=== PATIENT | female | born 1950 | race Asian ===

== ENCOUNTER 2018-07-14 08:46 | Inpatient (IN) | payer OTHER, MEDICAID ==
[2018-07-06 13:18] LABS: CALCIUM 9.4 mg/dL (8.4-11.0); CREATININE 0.8 mg/dL (0.55-1.30); POTASSIUM 4.1 mmol/L (3.5-5.1)
[2018-07-06 13:29] LABS: BILIRUBIN,URINE NEGATIVE (NEGATIVE); CLARITY/URINE CLEAR (CLEAR); COLOR,URINE YELLOW (YELLOW); GLUCOSE,URINE NEGATIVE (NEGATIVE); KETONES,URINE NEGATIVE (NEGATIVE); LEUKOCYTE ESTERASE ,URINE NEGATIVE (NEGATIVE); NITRITE, URINE NEGATIVE (NEGATIVE); PH,URINE 5.5 (5.0-8.0); PROTEIN URINE NEGATIVE (NEGATIVE); UROBILINOGEN,URINE 0.2 (0.2-1.0)
[2018-07-06 13:31] LABS: EOSINOPHILS # (AUTO) 0.1 K/uL (0.0-0.4); LYMPHOCYTES # (AUTO) 2.4 K/uL (1.0-5.5); MEAN CORPUSCULAR VOLUME 90 fL (79.0-98.0); MONOCYTES # (AUTO) 0.4 K/uL (0.0-1.0); WHITE BLOOD COUNT (AUTO) 7.4 K/uL (4.8-10.8)
[2018-07-06 13:34] LABS: BASOPHILS % (AUTO) 0.3 % (0.0-2.0); EOSINOPHILS % (AUTO) 1.2 % (0.0-4.0); HEMATOCRIT 36.2 % (36-48); HEMOGLOBIN 11.7 g/dL (12.0-16.0); LYMPHOCYTES % (AUTO) 33.1 % (20.5-51.5); MEAN CORPUSCULAR HEMOGLOBIN 29 pg (27-31); MEAN CORPUSCULAR HGB CONC 32 % (32-36); MONOCYTES % (AUTO) 5.3 % (1.7-9.3); NEUTROPHILS # (AUTO) 4.4 K/uL (1.8-7.7); NEUTROPHILS % (AUTO) 60.1 % (40.0-70.0); PLATELET COUNT (AUTO) 279 K/uL (130-430); RED BLOOD CELL COUNT(AUTO) 4.03 MIL/uL (4.2-6.2); RED CELL DISTRIBUTION WIDTH 16.4 % (9.0-15.0)
[2018-07-06 13:35] LABS: BLOOD, URINE TRACE (NEGATIVE)
[2018-07-06 13:57] LABS: BACTERIA,URINE FEW /HPF (None Seen); MUCUS,URINE None Seen /LPF (None Seen); WBC,URINE 0-3 /HPF (0-3); YEAST,URINE None Seen /HPF (None Seen)
[~2018-07-14] VITALS: Ht 152.4 cm; Wt 72.6 kg
[2018-07-14] MEDS ORDERED: VANCOMYCIN HCL 1 GM/NS PREMIX 250 ML IV ONE (09:00)
[2018-07-14] MEDS ORDERED: CEFAZOLIN 2 GM IVPB PREMIX 50 ML IV ONE (09:00)
[2018-07-14] MEDS ORDERED: GLIP10TA11 PO (10:26)
[2018-07-14] MEDS ORDERED: DULA0.75 SQ (10:26)
[2018-07-14] MEDS ORDERED: MELO15TA13 PO (10:26)
[2018-07-14] MEDS ORDERED: METF1000 PO (10:26)
[2018-07-14] MEDS ORDERED: POLYMYXIN 500,000/BACIT.10,000 UNITS in NS IRR 1 L IR ONE (11:36)
[2018-07-14] MEDS ORDERED: TRANEXAMIC ACID 1,000 MG/10 ML VIAL IV ONE (12:11)
[2018-07-14] MEDS ORDERED: MORPHINE SULFATE 10MG/10ML PF AMP EP ONE (12:11)
[2018-07-14] MEDS ORDERED: BUPIVACAINE /DEX PF 0.75% SPINAL 2 ML AMP INJ ONE (12:11)
[2018-07-14] MEDS ORDERED: ROPIVACAINE 0.2% (NAROPIN) PF SOLUTION 100 ML BOTTLE EP ONE (12:11)
[2018-07-14] MEDS ORDERED: MIDAZOLAM HCL 5 MG/5 ML VIAL IVP ONE (12:11)
[2018-07-14] MEDS ORDERED: ROPIVACAINE 0.2% 550 ML INJ SCH (13:16)
[2018-07-14] MEDS ORDERED: ONDANSETRON HCL 4 MG/2 ML VIAL IVP PRN ×3 (13:30)
[2018-07-14] MEDS ORDERED: KETOROLAC TROMETHAMINE 60 MG/2 ML VIAL IM PRN (13:30)
[2018-07-14] MEDS ORDERED: DIPHENHYDRAMINE INJ 50 MG/ML VIAL IVP PRN ×2 (13:30)
[2018-07-14] MEDS ORDERED: NALBUPHINE HCL 10 MG/ML AMP IVP PRN ×2 (13:30)
[2018-07-14] MEDS ORDERED: KETOROLAC TROMETHAMINE 30 MG VIAL IVP PRN (13:30)
[2018-07-14] MEDS ORDERED: MORPHINE SULFATE 10MG/10ML PF AMP SP SCH (13:30)
[2018-07-14] MEDS ORDERED: OXYCODONE/ACETAMINOPHEN *10*mg/325 mg TABLET PO PRN (13:30)
[2018-07-14] MEDS ORDERED: NALOXONE HCL 0.4 MG/ML AMP (NARCAN) IVP PRN ×2 (13:30)
[2018-07-14] MEDS ORDERED: fentaNYL CITRATE/PF 100 MCG/2 ML AMP IVP PRN ×2 (13:30)
[2018-07-14 15:15] VITALS: BP_SYST 109
[2018-07-14 15:20] VITALS: BP_SYST 109
[2018-07-14] MEDS: D5/0.45 NS 1,000 ML IV SCH (16:23)
[2018-07-14] MEDS ORDERED: HYDROcodone/ACETAMIN 7.5-325 MG TAB PO PRN (16:30)
[2018-07-14] MEDS ORDERED: TRANEXAMIC ACID 1,000 MG in NS 50 ML IV ONE (17:15)
[2018-07-14] MEDS ORDERED: DEXTROSE 50% JECT 50 ML DISP.SYRIN IVP PRN (18:00)
[2018-07-14] MEDS: ONDANSETRON HCL 4 MG/2 ML VIAL IVP PRN (18:07)
[2018-07-14] MEDS ORDERED: METOCLOPRAMIDE HCL 10 MG/2 ML VIAL IVP PRN (18:15)
[2018-07-14] MEDS ORDERED: PANTOPRAZOLE SODIUM 40 MG/VIAL (PROTONIX) IVP ONE (18:30)
[2018-07-14 19:35] VITALS: BP_SYST 116
[2018-07-14] MEDS: SENNOSIDES 8.6 MG TABLET PO SCH (20:16)
[2018-07-14 23:47] VITALS: BP_SYST 119
[2018-07-15] MEDS: D5/0.45 NS 1,000 ML IV SCH ×3 (00:28→13:56)
[2018-07-15] MEDS: DIPHENHYDRAMINE HCL 25 MG CAPSULE PO PRN ×3 (01:37→09:29)
[2018-07-15] MEDS: HYDROcodone/ACETAMIN 10-325 MG TAB PO PRN (05:17)
[2018-07-15] MEDS: INSULIN REGULAR, HUMAN 100 UNITS/ML, 10 ML VIAL (novoLIN R) SUBCUT PRN ×4 (05:57→21:01)
[2018-07-15 06:26] LABS: BASOPHILS % (AUTO) 0.1 % (0.0-2.0); EOSINOPHILS % (AUTO) 0.5 % (0.0-4.0); HEMATOCRIT 26.4 % (36-48); HEMOGLOBIN 8.7 g/dL (12.0-16.0); LYMPHOCYTES # (AUTO) 1.6 K/uL (1.0-5.5); LYMPHOCYTES % (AUTO) 18.4 % (20.5-51.5); MEAN CORPUSCULAR HEMOGLOBIN 30 pg (27-31); MEAN CORPUSCULAR HGB CONC 33 % (32-36); MEAN CORPUSCULAR VOLUME 90 fL (79.0-98.0); MONOCYTES # (AUTO) 0.7 K/uL (0.0-1.0); MONOCYTES % (AUTO) 7.8 % (1.7-9.3); NEUTROPHILS # (AUTO) 6.6 K/uL (1.8-7.7); NEUTROPHILS % (AUTO) 73.2 % (40.0-70.0); PLATELET COUNT (AUTO) 295 K/uL (130-430); RED BLOOD CELL COUNT(AUTO) 2.94 MIL/uL (4.2-6.2); RED CELL DISTRIBUTION WIDTH 15.8 % (9.0-15.0); WHITE BLOOD COUNT (AUTO) 8.9 K/uL (4.8-10.8)
[2018-07-15 06:35] LABS: CALCIUM 8.4 mg/dL (8.4-11.0); CREATININE 0.91 mg/dL (0.55-1.30); POTASSIUM 4.2 mmol/L (3.5-5.1)
[2018-07-15 06:42] LABS: TOTAL IRON BIND. CAPACITY 336 ug/dL (250-450)
[2018-07-15] MEDS ORDERED: NALOXONE HCL 0.4 MG/ML AMP (NARCAN) IVP PRN (08:15)
[2018-07-15] MEDS: MORPHINE PCA 50 mg/50 mL NS IV PRN (08:42)
[2018-07-15] MEDS ORDERED: MULTIVITAMINS TAB 1 TABLET PO SCH (09:00)
[2018-07-15] MEDS: ASCORBIC ACID 500 MG TABLET PO SCH ×2 (09:28→21:02)
[2018-07-15] MEDS: FERROUS SULFATE 140 MG TABLET.ER PO SCH (09:28)
[2018-07-15] MEDS: PANTOPRAZOLE SODIUM 40 MG/VIAL (PROTONIX) IVP SCH (09:28)
[2018-07-15] MEDS: MULTIVITAMINS TAB 1 TABLET PO SCH (09:28)
[2018-07-15] MEDS: RIVAROXABAN 10 MG TABLET PO SCH (09:33)
[2018-07-15 12:02] VITALS: BP_SYST 139
[2018-07-15] MEDS ORDERED: ACETAMINOPHEN 325 MG TABLET PO PRN (12:15)
[2018-07-15] MEDS: ONDANSETRON HCL 4 MG/2 ML VIAL IVP PRN (13:52)
[2018-07-15 16:02] VITALS: BP_SYST 118
[2018-07-15] MEDS ORDERED: ALBUTEROL SULFATE 0.083% 2.5 MG/3 ML VIAL.NEB INH PRN (17:30)
[2018-07-15] MEDS: D5NS 1,000 ML IV SCH (17:43)
[2018-07-15 20:00] VITALS: BP_SYST 129
[2018-07-15] MEDS: SENNOSIDES 8.6 MG TABLET PO SCH (21:02)
[2018-07-15] MEDS: ALBUTEROL SULFATE 0.083% 2.5 MG/3 ML VIAL.NEB INH SCH (23:11)
[2018-07-16 00:02] VITALS: BP_SYST 132
[2018-07-16] MEDS: HYDROcodone/ACETAMIN 10-325 MG TAB PO PRN ×2 (00:39→05:13)
[2018-07-16] MEDS: INSULIN REGULAR, HUMAN 100 UNITS/ML, 10 ML VIAL (novoLIN R) SUBCUT PRN ×3 (06:27→16:49)
[2018-07-16] MEDS: D5NS 1,000 ML IV SCH ×3 (06:31→21:40)
[2018-07-16] MEDS: ALBUTEROL SULFATE 0.083% 2.5 MG/3 ML VIAL.NEB INH SCH ×4 (07:00→22:43)
[2018-07-16 07:10] LABS: BASOPHILS % (AUTO) 0.3 % (0.0-2.0); EOSINOPHILS # (AUTO) 0.1 K/uL (0.0-0.4); EOSINOPHILS % (AUTO) 0.8 % (0.0-4.0); HEMATOCRIT 25.4 % (36-48); HEMOGLOBIN 8.3 g/dL (12.0-16.0); LYMPHOCYTES # (AUTO) 1.5 K/uL (1.0-5.5); LYMPHOCYTES % (AUTO) 15.4 % (20.5-51.5); MEAN CORPUSCULAR HEMOGLOBIN 29 pg (27-31); MEAN CORPUSCULAR HGB CONC 33 % (32-36); MEAN CORPUSCULAR VOLUME 89 fL (79.0-98.0); MONOCYTES # (AUTO) 0.7 K/uL (0.0-1.0); MONOCYTES % (AUTO) 7.4 % (1.7-9.3); NEUTROPHILS # (AUTO) 7.3 K/uL (1.8-7.7); NEUTROPHILS % (AUTO) 76.1 % (40.0-70.0); PLATELET COUNT (AUTO) 260 K/uL (130-430); RED BLOOD CELL COUNT(AUTO) 2.85 MIL/uL (4.2-6.2); RED CELL DISTRIBUTION WIDTH 15.9 % (9.0-15.0); WHITE BLOOD COUNT (AUTO) 9.6 K/uL (4.8-10.8)
[2018-07-16 07:12] LABS: CALCIUM 8.7 mg/dL (8.4-11.0); CREATININE 0.92 mg/dL (0.55-1.30)
[2018-07-16] MEDS: MORPHINE PCA 50 mg/50 mL NS IV PRN ×2 (07:16→21:33)
[2018-07-16 08:00] VITALS: BP_SYST 105
[2018-07-16] MEDS: DIPHENHYDRAMINE HCL 25 MG CAPSULE PO PRN ×2 (09:40→20:54)
[2018-07-16] MEDS: MULTIVITAMINS TAB 1 TABLET PO SCH ×2 (09:41→20:54)
[2018-07-16] MEDS: FERROUS SULFATE 140 MG TABLET.ER PO SCH (09:41)
[2018-07-16] MEDS: RIVAROXABAN 10 MG TABLET PO SCH (09:41)
[2018-07-16] MEDS: PANTOPRAZOLE SODIUM 40 MG/VIAL (PROTONIX) IVP SCH (09:41)
[2018-07-16] MEDS: ASCORBIC ACID 500 MG TABLET PO SCH ×2 (09:41→20:54)
[2018-07-16 11:58] VITALS: BP_SYST 129
[2018-07-16] MEDS ORDERED: CHOLECALCIFEROL (VITAMIN D3) 2,000 UNIT TABLET PO ONE (15:30)
[2018-07-16] MEDS ORDERED: CYANOCOBALAMIN 1000 mCg TABLET PO ONE (15:30)
[2018-07-16 16:05] VITALS: BP_SYST 134
[2018-07-16] MEDS: SOD FERRIC GLUC COMPLEX/SUC 125 MG in NS 100 ML IV SCH (16:48)
[2018-07-16] MEDS: SENNOSIDES 8.6 MG TABLET PO SCH (20:57)
[2018-07-17 00:22] VITALS: BP_SYST 149
[2018-07-17 06:13] LABS: BASOPHILS % (AUTO) 0.4 % (0.0-2.0); EOSINOPHILS # (AUTO) 0.1 K/uL (0.0-0.4); EOSINOPHILS % (AUTO) 0.7 % (0.0-4.0); HEMOGLOBIN 7.4 g/dL (12.0-16.0); LYMPHOCYTES # (AUTO) 1.3 K/uL (1.0-5.5); LYMPHOCYTES % (AUTO) 15.3 % (20.5-51.5); MEAN CORPUSCULAR HEMOGLOBIN 29 pg (27-31); MEAN CORPUSCULAR HGB CONC 32 % (32-36); MEAN CORPUSCULAR VOLUME 90 fL (79.0-98.0); MONOCYTES # (AUTO) 0.6 K/uL (0.0-1.0); MONOCYTES % (AUTO) 6.8 % (1.7-9.3); NEUTROPHILS # (AUTO) 6.7 K/uL (1.8-7.7); NEUTROPHILS % (AUTO) 76.8 % (40.0-70.0); PLATELET COUNT (AUTO) 244 K/uL (130-430); RED BLOOD CELL COUNT(AUTO) 2.54 MIL/uL (4.2-6.2); RED CELL DISTRIBUTION WIDTH 15.9 % (9.0-15.0); WHITE BLOOD COUNT (AUTO) 8.7 K/uL (4.8-10.8)
[2018-07-17] MEDS: INSULIN REGULAR, HUMAN 100 UNITS/ML, 10 ML VIAL (novoLIN R) SUBCUT PRN ×4 (06:21→21:00)
[2018-07-17 06:40] LABS: CALCIUM 8.8 mg/dL (8.4-11.0); CREATININE 0.87 mg/dL (0.55-1.30)
[2018-07-17] MEDS: ALBUTEROL SULFATE 0.083% 2.5 MG/3 ML VIAL.NEB INH SCH ×3 (07:00→23:00)
[2018-07-17 08:00] VITALS: BP_SYST 126
[2018-07-17] MEDS: CHOLECALCIFEROL (VITAMIN D3) 2,000 UNIT TABLET PO SCH (08:41)
[2018-07-17] MEDS: ASCORBIC ACID 500 MG TABLET PO SCH ×2 (08:41→20:44)
[2018-07-17] MEDS: PANTOPRAZOLE SODIUM 40 MG/VIAL (PROTONIX) IVP SCH (08:41)
[2018-07-17] MEDS: MULTIVITAMINS TAB 1 TABLET PO SCH ×2 (08:41→20:44)
[2018-07-17] MEDS: CYANOCOBALAMIN 1000 mCg TABLET PO SCH (08:41)
[2018-07-17] MEDS: FERROUS SULFATE 140 MG TABLET.ER PO SCH (08:41)
[2018-07-17] MEDS: MORPHINE PCA 50 mg/50 mL NS IV PRN (09:40)
[2018-07-17] MEDS: RIVAROXABAN 10 MG TABLET PO SCH (09:53)
[2018-07-17] MEDS: NACL 0.9% 1,000 ML IV SCH (11:29)
[2018-07-17 12:10] VITALS: BP_SYST 140
[2018-07-17] MEDS ORDERED: BISACODYL 5 MG TABLET.DR (DULCOLAX) PO ONE (14:30)
[2018-07-17] MEDS ORDERED: DOCUSATE SODIUM 250 MG CAPSULE PO ONE (14:30)
[2018-07-17] MEDS ORDERED: BISACODYL 5 MG TABLET.DR (DULCOLAX) PO PRN (14:30)
[2018-07-17] MEDS ORDERED: MILK OF MAGNESIA 30 ML UDC PO ONE (14:30)
[2018-07-17] MEDS ORDERED: BISACODYL 10 MG/SUPPOSITORY RC PRN (14:30)
[2018-07-17 16:25] VITALS: BP_SYST 119
[2018-07-17] MEDS: SOD FERRIC GLUC COMPLEX/SUC 125 MG in NS 100 ML IV SCH (16:39)
[2018-07-17] MEDS: HYDROcodone/ACETAMIN 10-325 MG TAB PO PRN ×2 (16:49→20:45)
[2018-07-17 20:00] VITALS: BP_SYST 132
[2018-07-17] MEDS: SENNOSIDES 8.6 MG TABLET PO SCH (20:45)
[2018-07-17] MEDS: DOCUSATE SODIUM 250 MG CAPSULE PO SCH (20:53)
[2018-07-18] MEDS: HYDROcodone/ACETAMIN 10-325 MG TAB PO PRN ×6 (02:42→22:26)
[2018-07-18 04:41] VITALS: BP_SYST 104
[2018-07-18 06:46] LABS: BASOPHILS % (AUTO) 0.4 % (0.0-2.0); EOSINOPHILS # (AUTO) 0.1 K/uL (0.0-0.4); EOSINOPHILS % (AUTO) 2.4 % (0.0-4.0); HEMATOCRIT 23.2 % (36-48); HEMOGLOBIN 7.7 g/dL (12.0-16.0); LYMPHOCYTES # (AUTO) 0.9 K/uL (1.0-5.5); LYMPHOCYTES % (AUTO) 16.1 % (20.5-51.5); MEAN CORPUSCULAR HEMOGLOBIN 30 pg (27-31); MEAN CORPUSCULAR HGB CONC 33 % (32-36); MEAN CORPUSCULAR VOLUME 90 fL (79.0-98.0); MONOCYTES # (AUTO) 0.5 K/uL (0.0-1.0); NEUTROPHILS # (AUTO) 4.3 K/uL (1.8-7.7); NEUTROPHILS % (AUTO) 73.1 % (40.0-70.0); PLATELET COUNT (AUTO) 231 K/uL (130-430); RED BLOOD CELL COUNT(AUTO) 2.57 MIL/uL (4.2-6.2); RED CELL DISTRIBUTION WIDTH 15.4 % (9.0-15.0); WHITE BLOOD COUNT (AUTO) 5.8 K/uL (4.8-10.8)
[2018-07-18] MEDS: NACL 0.9% 1,000 ML IV SCH (06:48)
[2018-07-18 06:56] LABS: CALCIUM 8.6 mg/dL (8.4-11.0); CREATININE 0.75 mg/dL (0.55-1.30); POTASSIUM 3.8 mmol/L (3.5-5.1)
[2018-07-18] MEDS: INSULIN REGULAR, HUMAN 100 UNITS/ML, 10 ML VIAL (novoLIN R) SUBCUT PRN ×3 (06:59→22:33)
[2018-07-18] MEDS: ALBUTEROL SULFATE 0.083% 2.5 MG/3 ML VIAL.NEB INH SCH ×3 (07:23→23:00)
[2018-07-18 08:00] VITALS: BP_SYST 111
[2018-07-18] MEDS: CHOLECALCIFEROL (VITAMIN D3) 2,000 UNIT TABLET PO SCH (09:38)
[2018-07-18] MEDS: MULTIVITAMINS TAB 1 TABLET PO SCH ×2 (09:38→22:25)
[2018-07-18] MEDS: ASCORBIC ACID 500 MG TABLET PO SCH ×2 (09:38→22:25)
[2018-07-18] MEDS: DOCUSATE SODIUM 250 MG CAPSULE PO SCH ×2 (09:39→22:26)
[2018-07-18] MEDS: RIVAROXABAN 10 MG TABLET PO SCH (09:39)
[2018-07-18] MEDS: CYANOCOBALAMIN 1000 mCg TABLET PO SCH (09:39)
[2018-07-18] MEDS: PANTOPRAZOLE SODIUM 40 MG/VIAL (PROTONIX) IVP SCH (09:40)
[2018-07-18] MEDS: FERROUS SULFATE 140 MG TABLET.ER PO SCH (09:40)
[2018-07-18 09:44] LABS: RETICULOCYTE COUNT 5.5 % (0.5-1.5)
[2018-07-18] MEDS ORDERED: GABAPENTIN 100 MG CAPSULE PO ONE (12:00)
[2018-07-18 12:45] VITALS: BP_SYST 142
[2018-07-18 16:45] VITALS: BP_SYST 137
[2018-07-18] MEDS: SOD FERRIC GLUC COMPLEX/SUC 125 MG in NS 100 ML IV SCH (17:08)
[2018-07-18 20:00] VITALS: BP_SYST 110
[2018-07-18] MEDS ORDERED: GABAPENTIN 300 MG CAPSULE PO SCH (21:00)
[2018-07-18] MEDS: SENNOSIDES 8.6 MG TABLET PO SCH (21:00)
[2018-07-18] MEDS: GABAPENTIN 300 MG CAPSULE PO SCH (22:25)
[2018-07-19 00:16] VITALS: BP_SYST 132
[2018-07-19] MEDS: HYDROcodone/ACETAMIN 10-325 MG TAB PO PRN ×4 (03:05→15:47)
[2018-07-19] MEDS: NACL 0.9% 1,000 ML IV SCH (06:32)
[2018-07-19 07:01] LABS: BASOPHILS % (AUTO) 0.2 % (0.0-2.0); EOSINOPHILS # (AUTO) 0.2 K/uL (0.0-0.4); EOSINOPHILS % (AUTO) 2.9 % (0.0-4.0); HEMOGLOBIN 7.7 g/dL (12.0-16.0); LYMPHOCYTES % (AUTO) 17.7 % (20.5-51.5); MEAN CORPUSCULAR HEMOGLOBIN 30 pg (27-31); MEAN CORPUSCULAR HGB CONC 33 % (32-36); MEAN CORPUSCULAR VOLUME 89 fL (79.0-98.0); MONOCYTES # (AUTO) 0.4 K/uL (0.0-1.0); MONOCYTES % (AUTO) 7.9 % (1.7-9.3); NEUTROPHILS # (AUTO) 4.1 K/uL (1.8-7.7); NEUTROPHILS % (AUTO) 71.3 % (40.0-70.0); PLATELET COUNT (AUTO) 247 K/uL (130-430); RED BLOOD CELL COUNT(AUTO) 2.58 MIL/uL (4.2-6.2); RED CELL DISTRIBUTION WIDTH 15.4 % (9.0-15.0); WHITE BLOOD COUNT (AUTO) 5.7 K/uL (4.8-10.8)
[2018-07-19 08:00] VITALS: BP_SYST 150
[2018-07-19 08:09] LABS: CALCIUM 8.5 mg/dL (8.4-11.0); CREATININE 0.68 mg/dL (0.55-1.30); POTASSIUM 3.1 mmol/L (3.5-5.1)
[2018-07-19] MEDS: ALBUTEROL SULFATE 0.083% 2.5 MG/3 ML VIAL.NEB INH SCH ×2 (08:41→15:00)
[2018-07-19] MEDS: ASCORBIC ACID 500 MG TABLET PO SCH (08:53)
[2018-07-19] MEDS: PANTOPRAZOLE SODIUM 40 MG/VIAL (PROTONIX) IVP SCH (08:53)
[2018-07-19] MEDS: CYANOCOBALAMIN 1000 mCg TABLET PO SCH (08:53)
[2018-07-19] MEDS: MULTIVITAMINS TAB 1 TABLET PO SCH (08:53)
[2018-07-19] MEDS: DOCUSATE SODIUM 250 MG CAPSULE PO SCH (08:53)
[2018-07-19] MEDS: CHOLECALCIFEROL (VITAMIN D3) 2,000 UNIT TABLET PO SCH (08:53)
[2018-07-19] MEDS: GABAPENTIN 300 MG CAPSULE PO SCH (08:53)
[2018-07-19] MEDS: FERROUS SULFATE 140 MG TABLET.ER PO SCH (08:54)
[2018-07-19] MEDS: RIVAROXABAN 10 MG TABLET PO SCH (10:38)
[2018-07-19] MEDS: INSULIN REGULAR, HUMAN 100 UNITS/ML, 10 ML VIAL (novoLIN R) SUBCUT PRN (11:32)
[2018-07-19] MEDS ORDERED: HYDR-551 PO (11:55)
[2018-07-19] MEDS ORDERED: SENN17.24 PO (11:57)
[2018-07-19] MEDS ORDERED: NEU300 PO (11:58)
[2018-07-19] MEDS ORDERED: RIVA10TA PO (11:59)
[2018-07-19 12:30] VITALS: BP_SYST 127
[2018-07-19] MEDS ORDERED: POTASSIUM CHLORIDE 20 MEQ TAB.PRT.SR PO ONE (13:45)
[2018-07-19] MEDS ORDERED: SOD FERRIC GLUC COMPLEX/SUC 125 MG in NS 100 ML IV SCH (15:00)
[2018-07-19 15:36] VITALS: BP_SYST 127
[2018-07-19 16:35] VITALS: BP_SYST 139
[2018-07-19] MEDS ORDERED: FAMOTIDINE 20 MG TABLET PO SCH (21:00)
[2018-07-19] MEDS ORDERED: POTASSIUM CHLORIDE 20 MEQ TAB.PRT.SR PO SCH (21:00)
== END 2018-07-19 17:04 | DRG 470 ==
LOC: SMU 08:48 → EDSTATUS 12:40 → SMU 15:13 → STU 15:16 → SMU 07-19 07:58
PROVIDERS: ADMIT Orthopaedic Surgery; ATTEND Orthopaedic Surgery
PROC: 0SRD0J9 Replacement of Left Knee Joint with Synthetic Substitute, Cemented, Open Approach (ICD-10-PCS; principal; 2018-07-14 11:30)
PROC: 30233N1 Transfusion of Nonautologous Red Blood Cells into Peripheral Vein, Percutaneous Approach (ICD-10-PCS; 2018-07-17)
DX: M17.12 Unilateral primary osteoarthritis, left knee (principal); E87.1 Hypo-osmolality and hyponatremia; D62 Acute posthemorrhagic anemia; K59.00 Constipation, unspecified; I10 Essential (primary) hypertension; M85.862 Other specified disorders of bone density and structure, left lower leg; F41.9 Anxiety disorder, unspecified; E53.8 Deficiency of other specified B group vitamins; E66.9 Obesity, unspecified; E11.9 Type 2 diabetes mellitus without complications; Z68.31 Body mass index [BMI] 31.0-31.9, adult; E61.1 Iron deficiency; Z82.49 Family history of ischemic heart disease and other diseases of the circulatory system; Z83.3 Family history of diabetes mellitus; Z83.6 Family history of other diseases of the respiratory system
CPT/HCPCS: 36415; 71045; 71046-TC; 73560-TC; 80048; 81000-TC; 82306; 82607; 82962; 83540-TC; 83550-TC; 85025; 85044-TC; 86886; 86890; 86900; 86901; 86920; 87081; 88305; 88311; 94010; 94640; 94760; 97110-GP; 97116-GP; 97163; 97530-GP; C1713; C1776; C9113; J0690; J1200; J1815; J2250; J2270; J2274; J2405; J2795; J2916; J3370; J3490; J7030; J7040; J7042; J7613; Q0163

== ENCOUNTER 2019-01-17 13:02 | Emergency (ER) | payer OTHER, MEDICAID ==
[~2019-01-17] VITALS: Ht 149.9 cm; Wt 70.3 kg
[~2019-01-17 13:02] MED LIST: DULA0.75 SQ; GLIP10TA11 PO; HYDR-4273 PO; MELO15TA13 PO; METF1000 PO; NEU300 PO; RIVA10TA PO; SENN17.24 PO
[2019-01-17 13:20] VITALS: BP_SYST 129
[2019-01-17 14:48] LABS: BILIRUBIN,URINE NEGATIVE (NEGATIVE); BLOOD, URINE 3+ (NEGATIVE); CLARITY/URINE HAZY (CLEAR); COLOR,URINE YELLOW (YELLOW); GLUCOSE,URINE NEGATIVE (NEGATIVE); KETONES,URINE 1+ (NEGATIVE); LEUKOCYTE ESTERASE ,URINE TRACE (NEGATIVE); NITRITE, URINE NEGATIVE (NEGATIVE); PH,URINE 5.5 (5.0-8.0); PROTEIN URINE 1+ (NEGATIVE); UROBILINOGEN,URINE 0.2 (0.2-1.0)
[2019-01-17 14:54] LABS: HEMATOCRIT 39.5 % (36-48); HEMOGLOBIN 13.3 g/dL (12.0-16.0); MEAN CORPUSCULAR HEMOGLOBIN 31 pg (27-31); MEAN CORPUSCULAR VOLUME 93 fL (79.0-98.0); RED BLOOD CELL COUNT(AUTO) 4.27 MIL/uL (4.2-6.2); WHITE BLOOD COUNT (AUTO) 9.6 K/uL (4.8-10.8)
[2019-01-17 14:55] LABS: BASOPHILS # (AUTO) 0.1 K/uL (0.0-0.2); BASOPHILS % (AUTO) 0.7 % (0.0-2.0); EOSINOPHILS # (AUTO) 0.1 K/uL (0.0-0.4); LYMPHOCYTES # (AUTO) 2.8 K/uL (1.0-5.5); LYMPHOCYTES % (AUTO) 28.9 % (20.5-51.5); MEAN CORPUSCULAR HGB CONC 34 % (32-36); MONOCYTES # (AUTO) 0.5 K/uL (0.0-1.0); MONOCYTES % (AUTO) 5.1 % (1.7-9.3); NEUTROPHILS # (AUTO) 6.2 K/uL (1.8-7.7); NEUTROPHILS % (AUTO) 64.3 % (40.0-70.0); PLATELET COUNT (AUTO) 268 K/uL (130-430); RED CELL DISTRIBUTION WIDTH 13.6 % (9.0-15.0)
[2019-01-17 14:56] LABS: CALCIUM 9.5 mg/dL (8.4-11.0); CREATININE 0.86 mg/dL (0.55-1.30); POTASSIUM 3.8 mmol/L (3.5-5.1)
[2019-01-17 14:59] LABS: RBC,URINE 80-100 /HPF (0-3)
[2019-01-17 15:00] LABS: BACTERIA,URINE FEW /HPF (None Seen); CALCIUM OXALATE CRYSTALS,UR 0-10 /HPF (None Seen); MUCUS,URINE 1+ /LPF (None Seen)
[2019-01-17 15:03] LABS: ALBUMIN 3.4 g/dL (3.4-4.8); TOTAL BILIRUBIN 0.5 mg/dL (0.0-1.0)
[2019-01-17] MEDS ORDERED: cefTRIAXone 1 GM IVPB PREMIX 50 ML IV ONE (16:15)
[2019-01-17] MEDS ORDERED: SODIUM CHLORIDE 500 MG TABLET PO ONE (16:15)
[2019-01-17 17:12] LABS: CALCIUM 9.6 mg/dL (8.4-11.0); CREATININE 0.78 mg/dL (0.55-1.30)
[2019-01-17] MEDS ORDERED: PANTOPRAZOLE SODIUM 40 MG TAB PO ONE (18:00)
[2019-01-17 18:14] VITALS: BP_SYST 129
== END 2019-01-17 18:11 | disposition home or self-care (01) ==
LOC: SED 13:02
DX: K29.70 Gastritis, unspecified, without bleeding (principal); N39.0 Urinary tract infection, site not specified; E87.1 Hypo-osmolality and hyponatremia; E11.9 Type 2 diabetes mellitus without complications; Z79.899 Other long term (current) drug therapy
CPT/HCPCS: 36415; 80048; 80053; 81000; 83690; 85025; 87086; 96365; 99283; J0696

== ENCOUNTER 2019-01-23 19:18 | Emergency (ER) | payer OTHER, MEDICAID ==
[~2019-01-23] VITALS: Ht 149.9 cm; Wt 70.3 kg
[2019-01-23 19:50] VITALS: BP_SYST 143
[2019-01-23] MEDS ORDERED: MORPHINE 4 MG/ML INJ. SYRINGE IVP ONE ×2 (20:30→23:30)
[2019-01-23] MEDS ORDERED: NACL 0.9% 1,000 ML IV ONE ×2 (20:30→22:45)
[2019-01-23] MEDS ORDERED: ONDANSETRON HCL 4 MG/2 ML VIAL IVP ONE (20:30)
[2019-01-23] MEDS ORDERED: ALPRAZolam 0.25 MG TABLET PO ONE (20:30)
[2019-01-23 21:29] LABS: BASOPHILS % (AUTO) 0.3 % (0.0-2.0); EOSINOPHILS # (AUTO) 0.1 K/uL (0.0-0.4); EOSINOPHILS % (AUTO) 0.5 % (0.0-4.0); HEMOGLOBIN 12.1 g/dL (12.0-16.0); LYMPHOCYTES # (AUTO) 1.3 K/uL (1.0-5.5); LYMPHOCYTES % (AUTO) 10.1 % (20.5-51.5); MEAN CORPUSCULAR HEMOGLOBIN 31 pg (27-31); MEAN CORPUSCULAR HGB CONC 33 % (32-36); MEAN CORPUSCULAR VOLUME 94 fL (79.0-98.0); MONOCYTES # (AUTO) 0.4 K/uL (0.0-1.0); MONOCYTES % (AUTO) 3.3 % (1.7-9.3); NEUTROPHILS # (AUTO) 10.7 K/uL (1.8-7.7); NEUTROPHILS % (AUTO) 85.8 % (40.0-70.0); PLATELET COUNT (AUTO) 197 K/uL (130-430); RED BLOOD CELL COUNT(AUTO) 3.93 MIL/uL (4.2-6.2); RED CELL DISTRIBUTION WIDTH 13.9 % (9.0-15.0); WHITE BLOOD COUNT (AUTO) 12.5 K/uL (4.8-10.8)
[2019-01-23 21:36] LABS: CALCIUM 9.2 mg/dL (8.4-11.0); CREATININE 1.21 mg/dL (0.55-1.30); POTASSIUM 3.9 mmol/L (3.5-5.1)
[2019-01-23 21:41] LABS: ALBUMIN 3.1 g/dL (3.4-4.8); TOTAL BILIRUBIN 0.4 mg/dL (0.0-1.0)
[2019-01-23] MEDS ORDERED: cefTRIAXone 1 GM IVPB PREMIX 50 ML IV ONE (22:45)
[2019-01-23 23:13] LABS: BILIRUBIN,URINE NEGATIVE (NEGATIVE); BLOOD, URINE 3+ (NEGATIVE); CLARITY/URINE CLEAR (CLEAR); COLOR,URINE YELLOW (YELLOW); GLUCOSE,URINE NEGATIVE (NEGATIVE); KETONES,URINE 1+ (NEGATIVE); LEUKOCYTE ESTERASE ,URINE NEGATIVE (NEGATIVE); NITRITE, URINE NEGATIVE (NEGATIVE); PROTEIN URINE TRACE (NEGATIVE); UROBILINOGEN,URINE 0.2 (0.2-1.0)
[2019-01-23 23:20] LABS: BACTERIA,URINE FEW /HPF (None Seen); RBC,URINE >100 /HPF (0-3)
[2019-01-24 00:31] VITALS: BP_SYST 143
== END 2019-01-24 00:26 | disposition home or self-care (01) ==
LOC: SED 19:18
DX: N12 Tubulo-interstitial nephritis, not specified as acute or chronic (principal); E11.9 Type 2 diabetes mellitus without complications; Z79.899 Other long term (current) drug therapy
CPT/HCPCS: 36415; 74176; 80053; 81000; 83605; 83690; 85025; 87040; 87086; 96361; 96365; 96375; 96376; 99284; J0696; J2270; J2405; J7030